=== PATIENT | male | born 1960 | race Caucasian/White ===

== ENCOUNTER 2019-01-24 10:53 | Emergency (ER) | payer MEDICAID ==
[~2019-01-24] VITALS: Ht 167.6 cm; Wt 83.6 kg
[2019-01-24] MEDS ORDERED: ACETAMINOPHEN 500 MG TABLET PO ONE (11:30)
[2019-01-24] MEDS ORDERED: IPRATROPIUM BROMIDE 0.5 MG/2.5 ML NEB SOLUTION NEB ONE (11:30)
[2019-01-24] MEDS ORDERED: ALBUTEROL SULFATE HFA 90 MCG/PUFF 8 GM INHALER IH ONE (11:30)
[2019-01-24] MEDS ORDERED: ALBUTEROL SULFATE 2.5 MG/0.5 ML NEB SOLUTION NEB ONE (11:30)
[2019-01-24 12:07] LABS: INFLUENZA TYPE A NEGATIVE FOR TYPE A (NEGATIVE); INFLUENZA TYPE B POSITIVE FOR TYPE B (NEGATIVE)
[2019-01-24] MEDS ORDERED: OSELTAMIVIR PHOSPHATE 75 MG CAPSULE PO ONE (13:15)
[2019-01-24 13:30] VITALS: BP 121/88
== END 2019-01-24 13:40 | disposition home or self-care (01) ==
LOC: EMS 10:58
DX: J10.1 Influenza due to other identified influenza virus with other respiratory manifestations (principal)
CPT/HCPCS: 87804; 94640; J3535

== ENCOUNTER 2019-01-26 16:39 | Emergency (ER) | payer MEDICAID ==
[~2019-01-26] VITALS: Ht 167.6 cm; Wt 84.1 kg
[2019-01-26 17:20] VITALS: BP 156/89
[2019-01-26 17:37] LABS: GLUCOSE,POINT OF CARE 114 MG/DL (70-110)
[2019-01-26 17:54] LABS: BASOPHILS % (AUTO) 0.2 % (0.0-2.0); EOSINOPHILS % (AUTO) 0.2 % (1.0-6.0); HEMOGLOBIN 14.9 g/dL (13.5-17.5); LYMPHOCYTES # (AUTO) 0.9 K/uL (1.0-4.8); MEAN CORPUSCULAR HEMOGLOBIN 29.2 pg (26.0-34.0); MEAN CORPUSCULAR HGB CONC 33.2 G/dL (31.0-37.0); MEAN CORPUSCULAR VOLUME 88 fL (80-100); MONOCYTES % (AUTO) 10.6 % (2.0-9.0); NEUTROPHILS # (AUTO) 7.9 K/uL (1.8-7.7); PLATELET COUNT (AUTO) 218 K/uL (150-450); RED CELL DISTRIBUTION WIDTH 14.2 % (11.5-14.5)
[2019-01-26 18:05] LABS: ANION GAP 7 mmol/L (8-16); CALCIUM, TOTAL 8.5 mg/dL (8.8-10.5); CARBON DIOXIDE 28 mmol/L (22-29); CHLORIDE 102 mmol/L (98-107); CREATININE 0.84 mg/dL (0.60-1.30); GLOMERULAR FILTR. RATE CALC > 60 mL/min (>60); GLUCOSE,RANDOM 112 mg/dL (70-110); POTASSIUM 4.1 mmol/L (3.5-5.1); SODIUM SERUM 137 mmol/L (136-145); UREA NITROGEN, BLOOD 10 mg/dL (7-18)
[2019-01-26 18:10] LABS: ALANINE AMINOTRANSFERASE 32 U/L (12-78); ALBUMIN 3.5 g/dL (3.4-5.0); ALKALINE PHOSPHATASE 80 U/L (46-116); ASPARTATE AMINOTRANSFERASE 27 U/L (15-37); BILIRUBIN,TOTAL 0.8 mg/dL (0.1-1.0); TOTAL PROTEIN, SERUM 7.9 g/dL (6.4-8.2)
[2019-01-26] MEDS ORDERED: LIDOCAINE/PF 1% 2 ML VIAL IM ONE (19:15)
[2019-01-26] MEDS ORDERED: CefTRIAXone SODIUM 1 GM/VIAL IM ONE (19:15)
== END 2019-01-26 20:55 | disposition home or self-care (01) ==
LOC: EMS 16:41
DX: J18.9 Pneumonia, unspecified organism (principal); J11.1 Influenza due to unidentified influenza virus with other respiratory manifestations
CPT/HCPCS: 36415; 71045; 80053; 82962; 84484; 85025; 87040; 96372; 99284; J0696; J3490

== ENCOUNTER 2022-05-01 14:22 | Emergency (ER) | payer MEDICAID ==
[~2022-05-01] VITALS: Ht 165.1 cm; Wt 88.2 kg
[2022-05-01] MEDS ORDERED: DIPH25CA85 PO (14:28)
[2022-05-01] MEDS ORDERED: [UNRECOGNIZED DRUG - OTHER] PO (14:28)
[2022-05-01] MEDS ORDERED: [UNRECOGNIZED DRUG - CODE] PO (14:28)
[2022-05-01] MEDS ORDERED: HYDR-4527 PO (16:14)
[2022-05-01 16:40] VITALS: BP 134/79
== END 2022-05-01 16:52 | disposition home or self-care (01) ==
LOC: EMS 14:25
DX: L29.9 Pruritus, unspecified (principal)
CPT/HCPCS: 99283; Z7502

== ENCOUNTER 2023-01-11 21:08 | Emergency (ER) | payer MEDICAID, OTHER ==
[~2023-01-11] VITALS: Ht 162.6 cm; Wt 86.4 kg
[~2023-01-11 21:08] MED LIST: DIPH25CA85 PO; HYDR-4527 PO; [UNRECOGNIZED DRUG - CODE] PO; [UNRECOGNIZED DRUG - OTHER] PO
[2023-01-11] MEDS ORDERED: IBUP-2077 PO (21:19)
[2023-01-11] MEDS ORDERED: AMOX500T2 PO (21:19)
[2023-01-11] MEDS ORDERED: HYDROCODONE/ACETAMINOPHEN 5-325 MG TABLET PO ONE (22:30)
[2023-01-11] MEDS ORDERED: HYDR-4723 PO (22:33)
[2023-01-11 23:32] VITALS: BP 142/74; PULSE 73; RESP 13; TEMP 97.3
== END 2023-01-11 23:44 | disposition home or self-care (01) ==
LOC: EMS 21:09
DX: K08.89 Other specified disorders of teeth and supporting structures (principal)
CPT/HCPCS: 99283